=== PATIENT | male | born 1955 | race Caucasian/White ===

== ENCOUNTER 2020-06-02 22:35 | Emergency (ER) | payer SELFPAY ==
[~2020-06-02] VITALS: Ht 193 cm; Wt 103.9 kg
[2020-06-02] MEDS ORDERED: lisINopril 10 MG (PRINIVIL) TABLET PO ONE (22:45)
[2020-06-02] MEDS ORDERED: hydrALAZINE (APESOLINE) 20 MG/ML VIAL IV ONE (22:45)
[2020-06-02] MEDS ORDERED: meTOproloL SUCCINATE 50 MG (TOPROL XL) TAB PO SCH (22:45)
[2020-06-02 22:56] LABS: BASOPHILS % (AUTO) 0 % (0-10); EOSINOPHILS # (AUTO) 0.1 10^3/uL (0.0-0.3); EOSINOPHILS % (AUTO) 1 % (0-10); HEMATOCRIT 43 % (40-54); HEMOGLOBIN 13.9 g/dL (13.3-17.7); LYMPHOCYTES % (AUTO) 31 % (12-44); MEAN CORPUSCULAR HEMOGLOBIN 31 pg (25-34); MEAN CORPUSCULAR HGB CONC 33 g/dL (32-36); MEAN CORPUSCULAR VOLUME 94 fL (80-99); MEAN PLATELET VOLUME 10.9 fL (9.0-12.2); MONOCYTES # (AUTO) 0.6 10^3/uL (0.0-1.0); MONOCYTES % (AUTO) 7 % (0-12); NEUTROPHILS # (AUTO) 5.8 10^3/uL (1.8-7.8); NEUTROPHILS % (AUTO) 61 % (42-75); PLATELET COUNT 210 10^3/uL (130-400); WHITE BLOOD COUNT 9.5 10^3/uL (4.3-11.0)
--- NOTE | 2020-06-02 22:56 | ED Lower Extremity ---
General Chief Complaint: Lower Extremity Stated Complaint: R LEG PAIN Source: patient History of Present Illness Date Seen by Provider: Jun 02, 2020 Time Seen by Provider: 22:36 Initial Comments PT ARRIVES VIA EMS FROM HOME C/O RIGHT LEG AND KNEE PAIN AND SWELLING PT HAD DVT IN RIGHT LEG 12/2019--SEEN AT [facility] ER. 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 HAS NOT FOLLOWED UP WITH ANYONE AT ANY TIME SINCE THEN, AND HAS NOT SEEN ANYONE IN OFFICE SINCE ER VISIT AT [facility] LAST . PT C/O INCREASED PAIN AND SWELLING AROUND RIGHT KNEE FOR THE LAST WEEK. NO INJURY TO KNEE NO FEVER NO CHEST PAIN OR SHORTNESS OF BREATH NO PALPITATIONS OR SYNCOPE PT TOOK TYLENOL 1 GRAM AT 1815 TONIGHT FOR KNEE PAIN HAS NOT SOUGHT CARE FOR THIS UNTIL TODAY--STATES HE CALLED THE [facility] IN [place] AND HAD AN APPOINTMENT THIS MORNING AT 11:00 AM, BUT DID NOT GO--DIDN'T WANT TO DRIVE DUE TO WEATHER ( ICE/SNOW ) PT HAS HISTORY OF HTN AND HAS BEEN PRESCRIBED TOPROL XL 50 MG BID AND LISINOPRIL 40 MG DAILY PT STATES HE TAKES BOTH MEDICATIONS JUST ONCE A DAY IN THE MORNING--KNOWS TOPROL IS PRESCRIBED BID, BUT STATES HE ONLY TAKES 1 PILL A DAY. (BOTTLES THAT PT BRINGS WITH HIM: TOPROL XL 50 MG BID, FILLED 05/05/19 #60; LISINOPRIL 40 MG 1 DAILY, FILLED 02/20/20 #90; ELIQUIS 5 MG--NO LABEL--?SAMPLE BOTTLE? ; ALL HAVE MULTIPLE PILLS LEFT IN BOTTLES. ) DENIES ANY "MISSED" DOSES OF BLOOD PRESSURE MEDICATION OR ELIQUIS. 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 FITTER AT THE [facility] IN [place] Allergies and Home Medications Allergies Coded Allergies: rivaroxaban (Verified Allergy, Unknown, 06/02/20) Home Medications Tramadol HCl 50 Mg Tablet, 50 MG PO Q4H Prescribed by: RANDELL DOMINGUEZ on 06/02/20 2599 Patient Home Medication List Home Medication List Reviewed: Yes Review of Systems Constitutional: no symptoms reported; No chills, No diaphoresis, No dizziness, No fever EENTM: no symptoms reported Respiratory: no symptoms reported; No short of breath Cardiovascular: see HPI; No chest pain; edema; No palpitations Gastrointestinal: no symptoms reported Genitourinary: no symptoms reported Musculoskeletal: see HPI Skin: no symptoms reported Psychiatric/Neurological: No Symptoms Reported Past Qruhmbx-[id number]-[id number] Hx Past Med/Social Hx: Reviewed and Corrections made Patient Social History Alcohol Use: Regular Use ("BINGE DRINKS" ) Drug of Choice: DENIES USE Smoking Status: Current Everyday Smoker (1 PPD) Type Used: Cigarettes Past Medical History Surgeries: No Cardiac: Yes (DVT RIGHT LEG 12/2019) Deep Vein Thrombosis, Hypertension Neurological: No Genitourinary: No Gastrointestinal: No Musculoskeletal: No Endocrine: No HEENT: No Cancer: No Psychosocial: No Integumentary: No Blood Disorders: Yes (DVT RIGHT LEG 12/2019--UNKNOWN CAUSE, HAS NOT FOLLOWED UP SINCE DX. ) Physical Exam Vital Signs Vital Signs - First Documented 06/02/20 22:35 Temp 36.4 Pulse 70 Resp 20 B/P (MAP) 221/128 (159) Pulse Ox 98 O2 Delivery Room Air Capillary Refill : Height, Weight, BMI Height: '" Weight: lbs. oz. kg; BMI Method: General Appearance: WD/WN, no apparent distress, other (ANXIOUS) Cardiovascular: regular rate, rhythm, no murmur Respiratory: normal breath sounds Hips: bilateral hip non-tender Legs: right leg other (TRACE SWELLING NOTED IN RIGHT LOWER LEG AND ANKLE. NO SWELLING ON LEFT. NO CALF TENDERNESS. NO DISCOLORATION. DISTAL PULSES INTACT. ) Knees: left knee normal inspection; right knee other (MODERATE SWELLING/EFFUSION TO RIGHT KNEE, DIFFUSE TENDERNESS, BUT IS MOST TENDER TO LATERAL AND POSTERIOR ASPECT OF RIGHT KNEE. NO DISCOLORATION, NO WARMTH. 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, no motor/sensory deficits, alert, oriented x 3 Skin: normal color, warm/dry; No rash Progress/Results/Core Measures Results/Orders Lab Results Laboratory Tests Test 06/02/20 22:40 Range/Units White Blood Count 9.5 4.3-11.0 10^3/uL Red Blood Count 4.54 4.30-5.52 10^6/uL Hemoglobin 13.9 13.3-17.7 g/dL Hematocrit 43 40-54 % Mean Corpuscular Volume 94 80-99 fL Mean Corpuscular Hemoglobin 31 25-34 pg Mean Corpuscular Hemoglobin Concent 33 32-36 g/dL Red Cell Distribution Width 15.7 H 10.0-14.5 % Platelet Count 210 130-400 10^3/uL Mean Platelet Volume 10.9 9.0-12.2 fL Immature Granulocyte % (Auto) 0 % Neutrophils (%) (Auto) 61 42-75 % Lymphocytes (%) (Auto) 31 12-44 % Monocytes (%) (Auto) 7 0-12 % Eosinophils (%) (Auto) 1 0-10 % Basophils (%) (Auto) 0 0-10 % Neutrophils # (Auto) 5.8 1.8-7.8 10^3/uL Lymphocytes # (Auto) 3.0 1.0-4.0 10^3/uL Monocytes # (Auto) 0.6 0.0-1.0 10^3/uL Eosinophils # (Auto) 0.1 0.0-0.3 10^3/uL Basophils # (Auto) 0.0 0.0-0.1 10^3/uL Immature Granulocyte # (Auto) 0.0 0.0-0.1 10^3/uL Erythrocyte Sedimentation Rate 18 0-30 MM/HR Prothrombin Time 13.0 12.2-14.7 SEC INR Comment 1.0 0.8-1.4 Activated Partial Thromboplast Time 34 24-35 SEC Sodium Level 138 135-145 MMOL/L Potassium Level 4.0 3.6-5.0 MMOL/L Chloride Level 106 98-107 MMOL/L Carbon Dioxide Level 20 L 21-32 MMOL/L Anion Gap 12 5-14 MMOL/L Blood Urea Nitrogen 15 7-18 MG/DL Creatinine 0.98 0.60-1.30 MG/DL Estimat Glomerular Filtration Rate > 60 BUN/Creatinine Ratio 15 Glucose Level 105 70-105 MG/DL Calcium Level 9.0 8.5-10.1 MG/DL Corrected Calcium 9.0 8.5-10.1 MG/DL Total Bilirubin 0.3 0.1-1.0 MG/DL Aspartate Amino Transf (AST/SGOT) 22 5-34 U/L Alanine Aminotransferase (ALT/SGPT) 15 0-55 U/L Alkaline Phosphatase 110 40-136 U/L B-Type Natriuretic Peptide 185.7 H <100.0 PG/ML Total Protein 7.6 6.4-8.2 GM/DL Albumin 4.0 3.2-4.5 GM/DL Serum Alcohol < 10 <10 MG/DL My Orders Orders - RANDELL DOMINGUEZ DO Ed Iv/Invasive Line Start (06/02/20 22:41) Monitor-Rhythm Ecg Trace Only (06/02/20 22:41) BNP (06/02/20 22:41) Cbc With Automated Diff (06/02/20 22:41) Comprehensive Metabolic Panel (06/02/20 22:41) Erythrocyte Sedimentation Rate (06/02/20 22:41) Protime With Inr (06/02/20 22:41) Partial Thromboplastin Time (06/02/20 22:41) Hydralazine Injection (Apresoline Inject (06/02/20 22:45) Lisinopril Tablet (Zestril Tablet) (06/02/20 22:45) Metoprolol Succinate (Xl) Tab (Toprol Xl (06/02/20 22:45) Ketorolac Injection (Toradol Injection) (06/02/20 23:00) Knee, Right, 3 Views (06/02/20 22:51) Ct Extremity Lower Right Wo (06/02/20 23:00) Alcohol (06/02/20 23:02) Rx-Tramadol Hcl (Rx-Ultram) (06/02/20 23:55) [place] Bandage (06/02/20 23:57) Medications Given in ED Current Medications Medications Dose Ordered Sig/Shanique Route Start Time Stop Time Status Last Admin Dose Admin Hydralazine HCl 10 mg ONCE ONCE IV 06/02/20 22:45 06/02/20 22:46 DC 06/02/20 23:05 10 MG Ketorolac Tromethamine 30 mg ONCE ONCE IVP 06/02/20 23:00 06/02/20 23:01 DC 06/02/20 23:05 30 MG Lisinopril 10 mg ONCE ONCE PO 06/02/20 22:45 06/02/20 22:46 DC 06/02/20 23:06 10 MG Vital Signs/I&O 06/02/20 06/03/20 22:35 00:25 Temp 36.4 36.4 Pulse 70 69 Resp 20 17 B/P (MAP) 221/128 (159) 178/95 (159) Pulse Ox 98 97 O2 Delivery Room Air Room Air Progress Progress Note : Progress Note GIVEN TORADOL FOR PAIN WITH IMPROVEMENT GIVEN HYDRALAZINE, TOPROL AND LISINOPRIL FOR BLOOD PRESSURE--BP DOWN TO 170'S/90'S PRIOR TO DISMISSAL. HR IN 80'S NO DETERIORATION IN PT'S CONDITION DURING ER STAY STRESSED THE IMPORTANCE OF FOLLOW UP APPOINTMENTS FOR FURTHER CARE OF HTN, DVT, AND RIGHT KNEE PROBLEMS Diagnostic Imaging Comments XRAYS RIGHT KNEE--SOFT TISSUE SWELLING, NO ACUTE BONY INJURY--PENDING RADIOLOGIST REVIEW CT RIGHT KNEE--MODERATE JOINT EFFUSION, NO FRACTURE. POPLITEAL FOSSA HEATON'S CYST. PER [facility] VIA FAX AT 2350 Reviewed: Reviewed by Me Departure Impression Primary Impression: Pain and swelling of right knee Additional Impressions: Synovial cyst of popliteal space [Heaton], right knee RIGHT KNEE BAKERS CYST Effusion of right knee RECENT DVT OF RIGHT LEG Uncontrolled hypertension Non-compliance Disposition: 01 HOME, SELF-CARE Condition: Improved Departure-Patient Inst. Referrals: SHANNAN MONTALVO MD Patient Instructions: Heaton's Cyst (DC), DASH Diet, Deep Vein Thrombosis (Blood Clots in the Legs) (DC), High Blood Pressure (DC), How to Use an Elastic Ban dage, Knee Pain (DC) Add. Discharge Instructions: [place] WRAP TO KNEE FOR PAIN AND SWELLING ICE TO KNEE AT 20 MINUTE INTERVALS ELEVATE RIGHT LEG MUCH POSSIBLE INCREASE YOUR TOPROL TO 100 MG IN MORNING, 50 MG IN EVENING CONTINUE LISINOPRIL 40 MG DAILY CONTINUE ELIQUIS 5 MG TWICE A DAY FOLLOW UP WITH DR. MONTALVO THIS WEEK FOR FURTHER EVALUATION OF KNEE PAIN AND SWELLING [facility] [place] [facility] WEEK FOR FURTHER EVALUATION OF BLOOD CLOT All discharge instructions reviewed with patient and/or family. Voiced understanding. Scripts Tramadol HCl (Ultram) 50 Mg Tablet 50 MG PO Q4H for Pain, #20 TAB Prov: RANDELL DOMINGUEZ DO 06/02/20 RANDELL DOMINGUEZ DO Jun 02, 2020 22:56
[2020-06-02] MEDS ORDERED: KETOROLAC 30 MG/ML VIAL IVP ONE (23:00)
[2020-06-02 23:03] LABS: GLUCOSE 105 MG/DL (70-105); TOTAL PROTEIN 7.6 GM/DL (6.4-8.2)
[2020-06-02 23:04] LABS: CARBON DIOXIDE 20 MMOL/L (21-32)
[2020-06-02 23:07] LABS: ALKALINE PHOSPHATASE 110 U/L (40-136); BILIRUBIN,TOTAL 0.3 MG/DL (0.1-1.0); CREATININE SERUM 0.98 MG/DL (0.60-1.30); GFR ESTIMATED > 60
[2020-06-02 23:08] LABS: BUN/CREATININE RATIO 15; CHLORIDE 106 MMOL/L (98-107); SODIUM 138 MMOL/L (135-145)
[2020-06-02 23:10] LABS: ALANINE AMINOTRANSFERASE 15 U/L (0-55)
[2020-06-02 23:26] LABS: ERYTHROCYTE SEDIMENTATION RATE 18 MM/HR (0-30)
[2020-06-02] MEDS ORDERED: TRAM-42 PO (23:55)
[2020-06-02] MEDS ORDERED: RX-TRAMADOL 50 MG (ULTRAM) TAB PPK#4 PO STA (23:55)
[2020-06-03 00:25] VITALS: BP 178/95
--- NOTE | 2020-06-03 08:03 | Diagnostic Imaging Report ---
INDICATION: Knee pain COMPARISON: CT from same date TECHNIQUE: 3 radiographs of the right knee dated 06/02/2020 FINDINGS: No acute fracture or dislocation. No destructive osseous process. Mild medial joint space narrowing. The lateral compartment is well maintained. Small knee joint effusion. Mild vascular calcifications. IMPRESSION: No acute osseous abnormality with mild degenerative changes and a small knee joint effusion present. Dictated by: Dictated on workstation # [id number]
--- NOTE | 2020-06-03 10:10 | Diagnostic Imaging Report ---
PROCEDURE: CT right lower extremity without contrast. TECHNIQUE: Axially acquired CT was obtained through the right lower extremity without intravenous contrast. Coronal and sagittal reformations were also performed. Auto Exposure Controls were utilized during the CT exam to meet ALARA standards for radiation dose reduction. INDICATION: Right knee pain and swelling. There is a moderate knee joint effusion. The distal femur and patella are intact. Proximal tibia is intact. No fractures or bony destructive process is identified. Patient does have a Heaton's cyst measuring approximately 2.8 x 2.8 x 5.5 cm. No soft tissue gas is identified. No soft tissue mass is detected. IMPRESSION: 1. Moderate knee joint effusion and Heaton's cyst. No acute bony abnormality is detected. Dictated by: Dictated on workstation # [id number]
== END 2020-06-03 00:25 | disposition home or self-care (01) ==
LOC: ER 22:40
DX: M71.21 Synovial cyst of popliteal space [Baker], right knee (principal); I10 Essential (primary) hypertension; I82.401 Acute embolism and thrombosis of unspecified deep veins of right lower extremity; F17.210 Nicotine dependence, cigarettes, uncomplicated; Z91.19 Patient's noncompliance with other medical treatment and regimen
CPT/HCPCS: 73562; 73700; 80053; 83880; 85025; 85610; 85652; 85730; 93041; 99284; G0480; 36415; 80320

== ENCOUNTER → 2020-06-16 | Outpatient (CLI) | payer SELFPAY ==
[~2020-06-16] MED LIST: TRAM-42 PO
== END ==
LOC: ORTHO 11:12
PROVIDERS: ATTEND Orthopaedic Surgery
DX: M17.11 Unilateral primary osteoarthritis, right knee (principal); Z86.718 Personal history of other venous thrombosis and embolism
CPT/HCPCS: 20610; G0463